=== PATIENT | female | born 1955 | race Caucasian/White ===

== ENCOUNTER → 2016-10-07 | Outpatient (CLI) | payer BC ==
[~2016-10-07] VITALS: Ht 160 cm; Wt 91.2 kg
[~2016-10-07] MED LIST: AMBIEN10 MG PO; ASPIR-LOW81 MG PO; ATORVASTATIN CA40 MG PO; CYCLOBENZAPRINE5 MG PO; GLIPIZIDE5 MG PO; GLUCOPHAGE500 MG PO; KEFLEX250 MG PO; LIPITOR40 MG PO; LISINOPRIL5 MG PO; LO-DOSE ASPIRIN81 M1 PO; MELATONIN10 M1 PO; METOPROLOL TART25 MG PO; OMEPRAZOLE40 M1 PO; PHENADOZ25 MG PR; PRAVACHOL40 MG PO; PRILOSEC40 MG PO; SERTRALINE HCL25 MG PO; SERTRALINE HCL50 MG PO; TRAMADOL HCL50 MG PO; VITAMIN D-32000 UNI2 PO; ZOLOFT50 MG PO
[2016-10-07 12:44] LABS: POINT-OF-CARE METER ID UU14107333
== END | disposition home or self-care (01) ==
LOC: AMB 11:52
PROVIDERS: Internal Medicine
DX: K29.70 Gastritis, unspecified, without bleeding (principal); Z86.010 Personal history of colon polyps; K21.9 Gastro-esophageal reflux disease without esophagitis; E11.9 Type 2 diabetes mellitus without complications; E78.5 Hyperlipidemia, unspecified; I10 Essential (primary) hypertension; Z80.3 Family history of malignant neoplasm of breast; Z80.1 Family history of malignant neoplasm of trachea, bronchus and lung; Z80.8 Family history of malignant neoplasm of other organs or systems; Z82.5 Family history of asthma and other chronic lower respiratory diseases; Z83.3 Family history of diabetes mellitus; E66.9 Obesity, unspecified; Z68.36 Body mass index [BMI] 36.0-36.9, adult; Z87.891 Personal history of nicotine dependence; Z79.82 Long term (current) use of aspirin; Z79.84 Long term (current) use of oral hypoglycemic drugs
CPT/HCPCS: 82948; 88305; 88342 TC; 93005; J3010